=== PATIENT | female | born 2000 | race Caucasian/White ===

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

== ENCOUNTER 2018-10-30 18:07 | Emergency (ER) | payer OTHER ==
[~2018-10-30] VITALS: Ht 154.9 cm; Wt 60.7 kg
[~2018-10-30 18:07] MED LIST changes: +HYDR-3652 PO; -HYDR-883 PO; -OMNIPAQUE 350 MG/ML, 100ML BOTTLE ONE
[2018-10-30 18:11] VITALS: BP 111/82
[2018-10-30 19:20] LABS: BASOPHILS # (AUTO) 0.05 x10^3/uL (0-0.3); BASOPHILS % (AUTO) 1 % (0-1); EOSINOPHILS # (AUTO) 0.09 x10^3/uL (0-0.8); EOSINOPHILS % (AUTO) 1 % (1-7); LYMPHOCYTES # (AUTO) 2.97 x10^3/uL (1-6.1); LYMPHOCYTES % (AUTO) 40 % (22-44); MD NO; MEAN CORPUSCULAR HEMOGLOBIN 34.3 pg (27.0-34.8); MEAN CORPUSCULAR HGB CONC 33.6 g/dL (32.4-35.8); MEAN CORPUSCULAR VOLUME 102.2 fL (80-100); MEAN PLATELET VOLUME 7.1 fL (7.4-10.4); MONOCYTES % (AUTO) 8 % (2-9); NEUTROPHILS # (AUTO) 3.72 x10^3/uL (1.8-8.0); NEUTROPHILS % (AUTO) 50 % (42-75); PLATELET COUNT 278 x10^3/uL (130-400); RED BLOOD COUNT 3.95 x10^6/uL (3.82-5.3); RED CELL DISTRIBUTION WIDTH 11.6 % (9.6-15.2)
[2018-10-30 19:21] LABS: ALBUMIN 3.2 g/dL (3.4-5.0); ANION GAP 6 mmol/L (5-15); CALCIUM 8.3 mg/dL (8.5-10.1); CHLORIDE 110 mmol/L (98-107); CREATININE 0.68 mg/dL (0.55-1.02)
--- NOTE | 2018-10-30 21:12 | NUR ---
NA WHEN CALLED TO BE ROOMED
--- NOTE | 2018-10-30 21:30 | NUR ---
not in lobby
--- NOTE | 2018-10-30 21:58 | NUR ---
not in lobby , lwbs
== END 2018-10-30 22:00 | disposition left against medical advice (07) ==
LOC: ED 21:54
DX: N89.8 Other specified noninflammatory disorders of vagina (principal); R10.9 Unspecified abdominal pain
CPT/HCPCS: 36415; 80048; 82040; 85025; 99283

== ENCOUNTER 2018-12-25 20:14 | Emergency (ER) | payer OTHER ==
[~2018-12-25] VITALS: Ht 154.9 cm; Wt 61.0 kg
[2018-12-25 20:16] VITALS: BP 105/58
== END 2018-12-25 21:10 | disposition home or self-care (01) ==
LOC: ED 21:04
DX: M54.2 Cervicalgia (principal); F41.1 Generalized anxiety disorder; J45.909 Unspecified asthma, uncomplicated
CPT/HCPCS: 72050; 96372; 99283; J1885

== ENCOUNTER 2019-06-24 20:23 | Emergency (ER) | payer OTHER ==
[~2019-06-24] VITALS: Ht 152.4 cm; Wt 61.8 kg
[2019-06-24 20:25] VITALS: BP 101/58
--- NOTE | 2019-06-24 20:59 | NUR ---
Pt here for fall after slipping on water at work. Is concerned as she is 3 months . Pt denies loss of loc. Pt resting in room. Pt reports sore pelvis and sacruma area, Pt denies midline or cervical tenderness at this time.
[2019-06-24] MEDS ORDERED: ACETAMINOPHEN 325 MG TABLET PO ONE (21:00)
[2019-06-24] MEDS ORDERED: ACETAMINOPHEN 325 MG TABLET ONE (21:07)
--- NOTE | 2019-06-24 21:26 | NUR ---
pt medicated per emar, pts tones not traceable, pt to havetransvaginal us.
--- NOTE | 2019-06-24 22:54 | NUR ---
Patient/Caregiver given discharge instructions and they have confirmed that they understand the instructions. Patient ambulatory with steady gait.
== END 2019-06-24 22:58 | disposition home or self-care (01) ==
LOC: ED 21:29
DX: O99.89 Other specified diseases and conditions complicating pregnancy, childbirth and the puerperium (principal); O99.511 Diseases of the respiratory system complicating pregnancy, first trimester; S16.1XXA Strain of muscle, fascia and tendon at neck level, initial encounter; S39.012A Strain of muscle, fascia and tendon of lower back, initial encounter; G89.11 Acute pain due to trauma; M25.552 Pain in left hip; J45.909 Unspecified asthma, uncomplicated; Z3A.12 12 weeks gestation of pregnancy; Z87.891 Personal history of nicotine dependence; Z90.49 Acquired absence of other specified parts of digestive tract; W01.0XXA Fall on same level from slipping, tripping and stumbling without subsequent striking against object, initial encounter; Y93.89 Activity, other specified; Y92.89 Other specified places as the place of occurrence of the external cause; Y99.0 Civilian activity done for income or pay
CPT/HCPCS: 72040; 72100; 76801; 99284

== ENCOUNTER 2019-11-25 17:47 | Outpatient (CLI) | payer OTHER ==
[~2019-11-25] VITALS: Ht 152.4 cm; Wt 70.5 kg
[2019-11-25 18:11] VITALS: BP 123/61
[2019-11-25 20:04] LABS: MICROSCOPIC INDICATED
[2020-01-02] MEDS ORDERED: IBUP-1222 PO (10:39)
== END 2019-11-25 20:58 | disposition home or self-care (01) ==
LOC: LDOP 17:47
PROVIDERS: ATTEND Obstetrics & Gynecology
DX: O26.893 Other specified pregnancy related conditions, third trimester (principal); R10.2 Pelvic and perineal pain; R25.2 Cramp and spasm; Z3A.34 34 weeks gestation of pregnancy
CPT/HCPCS: 59025; 81001; 87086

== ENCOUNTER 2020-06-23 12:37 | Emergency (ER) | payer OTHER ==
[~2020-06-23] VITALS: Ht 152.4 cm; Wt 65.8 kg
[~2020-06-23 12:37] MED LIST changes: +BIRTHCONTROL PO; +HYDR-1067 PO; -HYDR-3652 PO; +IBUP-1222 PO
--- NOTE | 2020-06-23 13:15 | NUR ---
PT HERE WITH C/O CHEST DISCOMFORT SINCE APRIL, STATES SHE HAD COVID IN FEBRUARY. PLACED ON VITALS MONITORS, CALL LIGHT PLACED WITHIN REACH.
--- NOTE | 2020-06-23 13:43 | NUR ---
REPORT TO GEORGIANA ALMAZAN.
--- NOTE | 2020-06-23 13:45 | NUR ---
ASSUMED CARE FROM NORAH RAMOS.
[2020-06-23 14:56] VITALS: BP 99/56
== END 2020-06-23 14:58 | disposition home or self-care (01) ==
LOC: ED 14:38
DX: R07.2 Precordial pain (principal); R06.02 Shortness of breath; J45.909 Unspecified asthma, uncomplicated; Z90.89 Acquired absence of other organs
CPT/HCPCS: 71045; 93005; 99283